=== PATIENT | male | born 1970 | race Caucasian/White ===

== ENCOUNTER → 2020-11-26 16:31 | Outpatient (CLI) | payer OTHER, SELFPAY ==
--- NOTE | ~2020-11-26 | XR_ITS ---
EXAMINATION: XR chest 2V 11/26/2020 17:01 INDICATION: Dyspnea. Abnormal immunologic findings in serum. PROCEDURE: 2 view chest COMPARISON: No prior studies for comparison. FINDINGS: The lungs are clear. The cardiomediastinal silhouette is within normal limits. There are no pleural effusions. There is no pneumothorax suspected. IMPRESSION: 1: NO ACUTE CARDIOPULMONARY DISEASE. Reviewed, dictated and finalized at location A.
== END ==
PROVIDERS: PCP Nurse Practitioner Family
DX: R76.8 Other specified abnormal immunological findings in serum (principal); R05 Cough
CPT/HCPCS: 71046

== ENCOUNTER 2024-02-12 15:32 | Emergency (ER) | payer OTHER, SELFPAY ==
--- NOTE | ~2024-02-12 | XR_ITS ---
EXAMINATION: XR hand LT min 3V DATE: 02/12/2024 18:21 INDICATION: Left hand crush injury. TECHNIQUE: 3 views of left hand were obtained. COMPARISON: None. FINDINGS: Bone alignment is normal. There is a comminuted fracture of tuft of third distal phalanx in near-anatomic alignment. Joint spaces are normal. IMPRESSION: 1. Comminuted fracture of tuft of third distal phalanx in near-anatomic alignment. Reviewed, dictated and finalized at location E. IMPRESSION: 1. Comminuted fracture of tuft of third distal phalanx in near-anatomic alignme nt.
[2024-02-12 15:58] VITALS: BP 125/81; PULSE 85; RESP 20; TEMP 36.6; O2SAT 98
--- NOTE | 2024-02-12 16:02 | PC.NURSE ---
Ice pack provided to pt
--- NOTE | 2024-02-12 18:22 | ED.UPPEXIN ---
HPI - Extremity Injury (Upper) General Chief Complaint: Extremity Injury, Upper Stated Complaint: L middle finger injury Time Seen by Provider: 02/12/24 18:06 History of Present Illness HPI narrative: 53-year-old male presents to emergency department for left 3rd finger injury that occurred prior to arrival. Patient states he accidentally closed a door on his finger. He reports pain to the distal aspect of his 3rd digit. Denies other injuries acquired. Related Data Allergies Allergy/AdvReac Type Severity Reaction Status Date / Time No Known Allergies Allergy Verified 06/20/18 10:30 Review of Systems Review of Systems: All systems reviewed & are unremarkable except as noted in HPI and below Exam Narrative: GENERAL: Well-appearing, well-nourished, and in no acute distress. HEAD: Normocephalic, atraumatic. NECK: Supple. CHEST: Clear to auscultation. No respiratory distress. HEART: Regular rate and rhythm. No murmur heard. Normal peripheral pulses. EXTREMITIES: LUE: tenderness and edema to the distal phalanx of the left 3rd digit with <50% nail subungual hematoma over the proximal aspect of the nail. Cap refill less than 2. Sensation intact. Patient has limited flexion of the distal phalanx secondary to pain. Radial pulse 2 +. No tenderness remainder of finger or hand. SKIN: Warm, dry, no rash. NEURO: No focal deficits. Alert and oriented x3 Course Vital Signs Vital signs: Vital Signs Temperature 97.8 F 02/12/24 15:58 Pulse Rate 85 02/12/24 15:58 Respiratory Rate 20 02/12/24 15:58 Blood Pressure 125/81 02/12/24 15:58 Pulse Oximetry 98 02/12/24 15:58 Oxygen Delivery Room Air 02/12/24 15:58 Temperature 97.8 F 02/12/24 15:58 Pulse Rate 85 02/12/24 15:58 Respiratory Rate 20 02/12/24 15:58 Blood Pressure 125/81 02/12/24 15:58 Pulse Oximetry 98 02/12/24 15:58 Oxygen Delivery Room Air 02/12/24 15:58 MDM - Extremity Injury (Upper) MDM Narrative Medical decision making narrative: 53-year-old male presents emergency department for left 3rd digit injury after sleeping his finger to door prior to arrival. Vitals are stable. Exam is significant for edema and tenderness to the distal phalanx of the 3rd digit with <50% 50% subungual hematoma. He is neurovascularly intact. X-ray show a comminuted fracture of the tuft of the 3rd distal phalanx in near anatomic alignment. Imaging discussed with the patient. I offered nail trephination for subcu hematoma, however he politely declined given a it is less than 50%, I feel this is fair. He is placed in a splint and provided Tylenol ibuprofen and hand surgery follow-up. Encouraged RICE, Tylenol ibuprofen for pain and discuss strict ED return precautions. He is agreeable to plan verbalized understanding. Discharged in stable condition. Discharge Plan Discharge Clinical Impression: Subungual hematoma, Closed fracture of tuft of distal phalanx of finger Patient Disposition: Home, Self-Care Condition: Stable Instructions: Antibiotic Form, Subungual Hematoma (ED), Finger Fracture (ED) Additional Instructions: Your evaluated in the emergency department for finger pain. Your x-ray show a fracture to the tuft of your 3rd finger. You also have a subungual hematoma which is a collection of blood beneath her fingernail. We discussed draining this, however you declined given this is less than 50% of your nail which I feel is fair. Please wear the splint as directed and take Tylenol ibuprofen as needed for pain. He can ice 20 minutes on 20 minutes off and elevate your hand. Please follow-up with hand surgeon. Return to the emergency department if he develops significantly worsening pain, your finger becomes white, or your subungual hematoma grows and becomes more painful. Follow-up/Referrals: Maria E Acharya MD [Physician] - 1 Day Samira Parmar APRN [Primary Care Provider] -
[2024-02-12] MEDS: ACETAMINOPHEN 500 MG TABLET 1000 MG PO (19:14)
[2024-02-12] MEDS: IBUPROFEN 400 MG TABLET 800 MG PO (19:14)
[2024-02-12 19:22] VITALS: BP 130/60; PULSE 78; RESP 18; TEMP 36.9; O2SAT 99
== END 2024-02-12 19:23 | disposition home or self-care (01) ==
PROVIDERS: Emergency Provider Physician Assistant; PCP Nurse Practitioner Family
DX: S62.633A Displaced fracture of distal phalanx of left middle finger, initial encounter for closed fracture (principal); S60.132A Contusion of left middle finger with damage to nail, initial encounter; W22.8XXA Striking against or struck by other objects, initial encounter
CPT/HCPCS: 29130; 73130; 99284; A9270

== ENCOUNTER 2024-02-24 15:36 | Outpatient (CLI) | payer OTHER, SELFPAY ==
--- NOTE | ~2024-02-24 | XR_ITS ---
XR finger 3rd LT min 2V 02/24/2024 16:03 Indication: Displaced fracture third distal phalanx Procedure: 3 views left third finger Comparison: 02/12/2024 Findings: There is a comminuted tuft fracture left third distal phalanx with near-anatomic alignment. Mild soft tissue swelling. No significant alteration of alignment compared with prior study. Impression: 1: Stable appearance to comminuted tuft fracture left third distal phalanx in near-anatomic alignment . Reviewed, dictated and finalized at location B. Impression: 1: Stable appearance to comminuted tuft fracture left third distal phalanx in n ear-anatomic alignment.
== END 2024-02-24 15:37 | disposition home or self-care (01) ==
LOC: ANHIMG 15:40
PROVIDERS: PCP Nurse Practitioner Family; Visit Provider Physician Assistant Surgical
DX: S62.633D Displaced fracture of distal phalanx of left middle finger, subsequent encounter for fracture with routine healing (principal); X58.XXXD Exposure to other specified factors, subsequent encounter
CPT/HCPCS: 73140

== ENCOUNTER 2025-01-22 09:59 | Outpatient (CLI) | payer OTHER, SELFPAY ==
--- NOTE | ~2025-01-22 | XR_ITS ---
EXAM/ PROCEDURE: XR toe 1st LT min 2V - 01/22/2025 10:07 CDT HISTORY: 54 years old Male with injury of left great toe COMPARISON: None available TECHNIQUE: 5 view(s) FINDINGS/ IMPRESSION: There are no fractures or dislocations.Joint space narrowing, subchondral sclerosis, subchondral cyst formation and osteophyte formation, compatible with mild osteoarthritis. Reviewed, dictated and finalized at location A.
== END 2025-01-22 10:00 | disposition home or self-care (01) ==
PROVIDERS: PCP Physician Assistant; Visit Provider Physician Assistant
DX: S99.922A Unspecified injury of left foot, initial encounter (principal); X58.XXXA Exposure to other specified factors, initial encounter
CPT/HCPCS: 73660